=== PATIENT | male | born 1965 | race Caucasian/White ===

== ENCOUNTER → 2019-01-07 | Day surgery (SDC) | payer BC ==
[~2019-01-07] MED LIST: FENTANYL CITRATE/PF 100MCG/2 ML INJ ONE; LIDOCAINE HCL 2% LOCAL INJ 5 ML SDV VIAL INJ ONE; MIDAZOLAM HCL 2 MG/2 ML VIAL ONE; OMEPRAZOLE40 MG PO; PROPOFOL IV EMULSION 10 MG/ML 50 ML VIAL ONE; VITAMIN D1000 UNI1 PO
--- OUTSIDE RECORDS SUMMARY | 2019-01-07 10:20 | XMS REPORT | Clinical Summary ---
Author Author LATASHA [facility] Address Unknown Phone Unavailable Care Team Providers Care Service Specialist Name Role Phone PCP Unavailable Allergies Comments Active Allergy Reactions Severity Noted Date Benzalkonium Chloride 11/10/2018 Penicillins 11/10/2018 Sulfa (Sulfonamide 11/10/2018 Antibiotics) Medications End Date Status Medication Sig Dispensed Refills Start Date Active cholecalciferol, vitamin Take by 0 D3, (VITAMIN D3 ORAL) mouth. Active omeprazole (PRILOSEC) 40 Take 40 mg by 0 MG capsule mouth daily. Active Problems Not on file Encounters Care Team Description Date Type Specialty Brigette Rodgers MD Right calf pain (Primary Dx); Muscle spasm 11/10/2018 Emergency Emergency Medicine after 01/06/2018 Social History Date Tobacco Use Types Packs/Day Years Used Never Smoker Sex Assigned at Date Recorded Not on file Industry Job Start Date Occupation Not on file Not on file Not on file Travel End Travel History Travel Start No recent travel history available. Last Filed Vital Signs Time Taken Vital Sign Reading 11/10/2018 6:02 AM CDT Blood Pressure 122/77 11/10/2018 6:02 AM CDT Pulse 78 11/10/2018 6:02 AM CDT Temperature 36.7 C (98 F) 11/10/2018 6:02 AM CDT Respiratory Rate 17 11/10/2018 5:09 AM CDT Oxygen Saturation 99% - Inhaled Oxygen - Concentration 11/10/2018 5:09 AM CDT Weight 79.4 kg (175 lb) 11/10/2018 5:09 AM CDT Height 180.3 cm (5' 11") 11/10/2018 5:09 AM CDT Body Mass Index 24.41 Plan of Treatment Not on file Procedures Comments Procedure Name Priority Date/Time Associated Diagnosis D-DIMER STAT 11/10/2018 5:23 AM CDT after 01/06/2018 Results * D-dimer, quantitative (11/10/2018 5:23 AM CDT) D-Dimer, Quant 0.13 <0.50 mg/L SUGAR [facility] Specimen Blood Narrative Performed At REGARDING D-DIMER RESULTS: The 98% NPV (Negative Predictive Value) for DVT/PE [place] exclusion is 0.50 mg/L FEU as suggested by the school library media program director and as approved by LABORATORY the FDA. Final Information (Auto Output) Performing Organization Address City/State/Zipcode Phone Number [facility] [address] [place] [address] after 01/06/2018 Insurance Payer Benefit Subscriber ID Type Phone Address Plan / Group BLUE [employer]UE [employer] BCBS ADV xxxxxxxxxxxx [phone] [address] [place] [address] EXCHANGE
--- OUTSIDE RECORDS SUMMARY | 2019-01-07 10:20 | XMS REPORT ---
Author Author [facility] Address Unknown Phone Unavailable Care Team Providers Care Director Surgical Name Role Phone TAB TRINIDAD Unavailable Unavailable Problems This patient has no known problems. Allergies, Adverse Reactions, Alerts This patient has no known allergies or adverse reactions. Medications This patient has no known medications. Results Test Description Test Time Test Comments Text Results Atomic Results Result Comments D-DIMER 2018-11-10 05:42:00 D-DIMER QUANTITATIVE (BEAKER) (test ttrw=020) 0.13 mg/L <0.50 REGARDING D-DIMER RESULTS: The 98% NPV (Negative Predictive Value) for DVT/PE ex clusion is 0.50 mg/L FEU as suggested by the information technology associate and as approved by the FDA.Final Information (Auto Output)XR Chest 1 View [id number] 04:51:44 Patient: NHI VILLEGAS am Date/Time02/15/2018 04:49 CSTReason for ExamChest painReportExam: AP chestLoca tion: [id number]: Chest painComparison: NoneFindings:The lungs are emphysematou s, but clear. The pulmonary vasculature is normal. The heart size is normal. The mediastinal silhouette is unremarkable. The bony thorax is intact.Impression:No acute disease. Final Dictated by: MD Hurt Francesco MDictated DT/TM: 02/15/2018 4:51 amSigned by: MD Hurt Francesco MSigned (Electronic Signature): 02/15/2018 4:51 am
[2019-01-07 14:00] VITALS: BP 107/78
--- NOTE | 2019-01-07 20:27 | Operative Report ---
DATE OF PROCEDURE: 01/07/2019 SURGEON: Robby Giordano MD PROCEDURE PERFORMED: Esophagogastroduodenoscopy. PREOPERATIVE DIAGNOSES: Peptic ulcer disease and gastroesophageal reflux disease. POSTOPERATIVE DIAGNOSES: Hiatal hernia, reflux esophagitis, gastritis, and benign gastric polyps. PREOPERATIVE MEDICATIONS: Consisted of IV sedation administered under MAC anesthesia. PROCEDURE IN DETAIL: Using an [employer] video gastroscope was inserted in the patient's oropharynx, advanced to hypopharynx and down to the esophagus. The mucosa presented in the esophagus was normal. There was evidence of a hiatal hernia from 39 to approximately 41 cm. We passed the scope down into the stomach, into the antrum, down into the duodenum. The endoscope was then withdrawn back up into the stomach. There was a gastritis in the antrum. A biopsy was obtained looking for the H. pylori infection. The scope was retroflexed viewing the cardia and fundus below was normal. The endoscope was then withdrawn back up into the fundus of the stomach, where several small benign fundic gland polyps were seen, but not biopsied. The colonoscope was withdrawn back out of the patient's mouth and the procedure was then ended. Robby Giordano MD SAF/MODL /[id number]
== END | disposition home or self-care (01) ==
LOC: OR 10:18
PROVIDERS: ATTEND Internal Medicine Gastroenterology
DX: K21.0 Gastro-esophageal reflux disease with esophagitis (principal); K31.7 Polyp of stomach and duodenum; K29.50 Unspecified chronic gastritis without bleeding; K44.9 Diaphragmatic hernia without obstruction or gangrene; G47.30 Sleep apnea, unspecified; R07.89 Other chest pain; K82.8 Other specified diseases of gallbladder; K80.20 Calculus of gallbladder without cholecystitis without obstruction; Z88.3 Allergy status to other anti-infective agents; Z88.0 Allergy status to penicillin; Z88.2 Allergy status to sulfonamides; Z01.810 Encounter for preprocedural cardiovascular examination
CPT/HCPCS: 43239; 93005; J2001; J2250; J2704; J3010

== ENCOUNTER 2019-03-08 21:28 | Emergency (ER) | payer BC ==
[~2019-03-08] VITALS: Ht 180.3 cm; Wt 78.5 kg
[~2019-03-08 21:28] MED LIST changes: -FENTANYL CITRATE/PF 100MCG/2 ML INJ ONE; -LIDOCAINE HCL 2% LOCAL INJ 5 ML SDV VIAL INJ ONE; -MIDAZOLAM HCL 2 MG/2 ML VIAL ONE; -PROPOFOL IV EMULSION 10 MG/ML 50 ML VIAL ONE
[2019-03-08 22:24] VITALS: BP 117/64
== END 2019-03-08 22:27 | disposition home or self-care (01) ==
LOC: ER 21:28
DX: Z48.01 Encounter for change or removal of surgical wound dressing (principal)
CPT/HCPCS: 99282

== ENCOUNTER 2019-03-10 04:50 | Emergency (ER) | payer BC ==
[~2019-03-10] VITALS: Ht 180.3 cm; Wt 78.5 kg
[2019-03-10 05:42] LABS: BASOPHILS # (AUTO) 0.1 (0.0-0.1); BASOPHILS % 0.7 % (0.0-1.0); EOSINOPHILS # (AUTO) 0.1 (0.0-0.4); EOSINOPHILS % 1.7 % (0.0-6.0); HEMATOCRIT 42.2 % (38.2-49.6); HEMOGLOBIN 14.2 g/dL (14.0-18.0); LYMPHOCYTES # (AUTO) 2.2 (1.0-3.2); MEAN CORPUSCULAR HEMOGLOBIN 29.4 pg (28-32); MEAN CORPUSCULAR HGB CONC 33.6 g/dL (31-35); MEAN CORPUSCULAR VOLUME 87.4 fL (81-99); MONOCYTES # (AUTO) 0.6 (0.2-0.8); MONOCYTES % 8.9 % (4.4-11.3); NEUTROPHILS # (AUTO) 4.2 (2.1-6.9); NEUTROPHILS % 58.3 % (38.7-80.0); PLATELET COUNT 266 x10e3/uL (140-360); RED BLOOD COUNT 4.83 x10e6/uL (4.3-5.7); RED CELL DISTRIBUTION WIDTH 12.1 % (11.7-14.4)
[2019-03-10 05:52] LABS: BILIRUBIN,URINE NEGATIVE (NEGATIVE); CLARITY,URINE CLEAR (CLEAR); COLOR,URINE YELLOW (YELLOW); KETONES,URINE 1+ (NEGATIVE); LEUKOCYTE ESTERASE ,URINE NEGATIVE (NEGATIVE); NITRITE,URINE NEGATIVE (NEGATIVE); PROTEIN,URINE DIPSTICK NEGATIVE (NEGATIVE); URINE UROBILINOGEN 0.2 mg/dL (0.2 - 1)
[2019-03-10 05:57] LABS: ALANINE AMINOTRANSFERASE 22 IU/L (0-55); ALBUMIN/GLOBULIN RATIO 1.4 (0.8-2.0); ALKALINE PHOSPHATASE 84 IU/L (40-150); ANION GAP 13.4 mmol/L (8-16); BLOOD UREA NITROGEN 14 mg/dL (7-26); BUN/CREATININE RATIO 13 (6-25); CALCIUM 9.4 mg/dL (8.4-10.2); CARBON DIOXIDE 24 mmol/L (22-29); CHLORIDE 103 mmol/L (98-107); CREATININE, SERUM 1.05 mg/dL (0.72-1.25); EST GLOMERULAR FILTRATION RATE > 60 ML/MIN (60-); GLUCOSE 122 mg/dL (74-118); POTASSIUM 3.4 mmol/L (3.5-5.1); SODIUM 137 mmol/L (136-145)
[2019-03-10 06:10] LABS: AMYLASE 44 U/L (25-125); LIPASE 13 U/L (8-78)
[2019-03-10 06:21] VITALS: BP 118/84
[2019-03-10 06:22] LABS: WBC,URINE (MAN) 0-5 /HPF (0-5)
[2019-03-10 06:23] LABS: BACTERIA,URINE RARE /HPF; EPITHELIAL CELLS,URINE FEW /LPF; RBC,URINE 0-5 /HPF (0-5)
== END 2019-03-10 06:27 | disposition home or self-care (01) ==
LOC: ER 04:50
DX: G89.18 Other acute postprocedural pain (principal)
CPT/HCPCS: 36415; 80053; 81001; 82150; 83690; 85025; 99283